=== PATIENT | male | born 1985 | race African-American/Black ===

== ENCOUNTER 2019-11-07 13:09 | Emergency (ER) | payer OTHER ==
[2019-11-07] MEDS ORDERED: TETRACAINE HCL 0.5% OPH SOLN 4 ML OS ONE (14:36)
--- NOTE | 2019-11-07 14:39 | ER Document Report ---
HPI - HPI Patient complains to provider of: left eye irritation Time Seen by Provider: 11/07/19 14:33 Onset: This morning Onset/Duration: Sudden Quality of pain: Achy Context: 34-year-old male presents emergency department with left eye irritation. Reports he works for [employer]. Reports he was getting in his car and unsure if he hit himself in the eye or the bag hit himself in the eye. Reports irritation since that time. Did use of eyedrops without relief of symptoms. Reports he is sensitive to light. Reports his vision is untouched. Does not wear contacts. No other complaints such as fever vomiting diarrhea. Associated Symptoms: None Exacerbated by: Other - sunlight Relieved by: Denies Similar symptoms previously: No Recently seen / treated by doctor: No Past Medical History - General Information source: Patient - Social History Smoking Status: Unknown if Ever Smoked Frequency of alcohol use: None Drug Abuse: None Occupation: [employer] Family History: None Patient has suicidal ideation: No Patient has homicidal ideation: No Pulmonary Medical History: Reports: Hx Asthma Surgical Hx: Negative Vertical Provider Document - CONSTITUTIONAL Agree With Documented VS: Yes Exam Limitations: No Limitations General Appearance: WD/WN, No Apparent Distress - HEENT HEENT: Atraumatic, Conjuctival Injection - left, Normocephalic, PERRLA - NECK Neck: Supple - RESPIRATORY Respiratory: No Respiratory Distress - CARDIOVASCULAR Cardiovascular: Regular Rate - MUSCULOSKELETAL/EXTREMETIES Musculoskeletal/Extremeties: MAEW, FROM - NEURO Level of Consciousness: Awake, Alert, Appropriate Motor/Sensory: No Motor Deficit - DERM Integumentary: Warm, Dry Course - Re-evaluation Re-evalutation: 11/07/19 14:38 Patient presents with irritation to the left eye. tetracaine and visual acuity ordered. - Vital Signs Vital signs: Temp Pulse Resp BP Pulse Ox 98.2 F 67 16 160/72 H 97 11/07/19 14:14 11/07/19 14:14 11/07/19 14:14 11/07/19 14:14 11/07/19 14:14 Procedures - Eye Procedure Left Eye Irrigated w/ Saline (ccs): 20 Alcaine Drops Administered: Yes Acular drops administered: Left Fluorescein applied: Left Antibiotic Oinment/Drps Admin: Left eye Slit lamp used: No Notes: 11/07/19 18:13 1 drop of tetracaine applied to left eye. Patient reports immediate relief after tetracaine. Fluorescein exam completed. Corneal abrasion noted. Patient was instructed on this. Instructed on antibiotics and ketorolac for pain. He verbalized understanding to all instructions. He was instructed on signs and symptoms of allergic reaction to the antibiotic. He was also instructed to follow-up with development trainer for recheck within the week and to return to the emergency department for any concerns worsening pain or problems with his vision.. He verbalized understanding to all instructions. Eyes picture: 1 - Corneal abrasion Discharge - Discharge Clinical Impression: Irritation of left eye Corneal abrasion Qualifiers: Encounter type: initial encounter Laterality: left Qualified Code(s): S05.02XA - Injury of conjunctiva and corneal abrasion without foreign body, left eye, initial encounter Condition: Stable Disposition: HOME, SELF-CARE Instructions: Corneal Abrasion ([facility]), Erythromycin ([facility]), Eyedrop Use ([facility]) Additional Instructions: *You have been evaluated for eye irritation, corneal abrasion *Use eye drops as prescribed-erythromycin half-inch ribbon to the bottom of your left lid 4 times a day for the next 5 days Toradol- 1 drop 4 times a day for three days *Good hand washing- Do not reuse wash clothes or towels after wiping eyes *Follow up with an development trainer for recheck within 1 week. *Return to ED for worsening condition, changes, needs, worsening pain, loss of vision, concerns Monitor your blood pressure. Your blood pressure was elevated today. This may be because you were anxious, in pain or because you need medication. It is important to follow up with your primary care provider for full evaluation. Forms: Elevated Blood Pressure
[2019-11-07] MEDS ORDERED: KETOROLAC TROMETHAMINE 0.45% 4 DROP/0.4 ML DROPERETTE OD ONE (16:09)
[2019-11-07] MEDS ORDERED: ERYTHROMYCIN 0.5% OPH OINTMENT 3.5 GM (ER DISP) OS PRN (16:19)
[2019-11-07 16:30] VITALS: BP 148/74
[2019-11-07] MEDS ORDERED: ERYTHROMYCIN 0.5% OPH OINT 1 GM UNIT DOSE OS SCH (18:00)
== END 2019-11-07 16:30 | disposition home or self-care (01) ==
LOC: ER 13:09
DX: S05.02XA Injury of conjunctiva and corneal abrasion without foreign body, left eye, initial encounter (principal); H57.12 Ocular pain, left eye; X58.XXXA Exposure to other specified factors, initial encounter
CPT/HCPCS: 99283; J3490